=== PATIENT | male | born 1995 | race Caucasian/White ===

== ENCOUNTER 2019-03-19 11:57 | Outpatient (CLI) | payer OTHER ==
--- NOTE | 2019-03-20 00:18 | XRAY Report ---
Reason: PAIN AND SWELLING AFTER FALL 4 DAYS PRIOR Procedure Date: 03/19/2019 Accession Number: [id number] / [id number] Procedure: XR - Knee 4 View RT CPT Code: Final Report FULL RESULT: EXAM: RIGHT KNEE RADIOGRAPHY EXAM DATE: 03/19/2019 12:13 PM. CLINICAL HISTORY: PAIN AND SWELLING AFTER FALL 4 DAYS PRIOR. COMPARISON: None. TECHNIQUE: 4 views. FINDINGS: Bones: No acute fractures or suspicious bone lesions. Joints: Large effusion. No subluxations. Soft Tissues: Unremarkable. IMPRESSION: Large effusion. No acute fracture. RADIA
== END 2019-03-19 11:58 | disposition home or self-care (01) ==
LOC: DI 11:57
PROVIDERS: ATTEND Family Medicine
DX: M25.561 Pain in right knee (principal); M25.461 Effusion, right knee

== ENCOUNTER 2019-04-02 12:11 | Outpatient (CLI) | payer OTHER ==
--- NOTE | 2019-04-03 13:53 | MRI Report ---
Reason: LARGE EFFUSION AND PERSISTENT PAIN RT KNEE Procedure Date: 04/02/2019 Accession Number: [id number] / [id number] Procedure: MRI - Knee RT W/O CPT Code: Final Report FULL RESULT: EXAM: RIGHT KNEE MRI WITHOUT CONTRAST EXAM DATE: 04/02/2019 01:56 PM. CLINICAL HISTORY: LARGE EFFUSION AND PERSISTENT PAIN RT KNEE. COMPARISON: KNEE 4 VIEW RT 03/19/2019 12:13 PM. TECHNIQUE: Multiplanar, multisequence T1-weighted and fluid-sensitive sequences of the knee without contrast. Other: None. FINDINGS: Bones: There is a large solid soft tissue mass anterior to the distal femur measuring at least 10 x 9 x 12 cm. The upper portion of the mass is not completely visualized on the field of view. The mass invades the anterior femur with partial cortical destruction and at least a 5 x 3 cm region of marrow invasion just above the metaphysis. The mass appears to be contiguous with the suprapatellar joint space. There is marrow edema in the distal femur which may either be reactive or additional tumor invasion. . Articular Cartilage: Unremarkable. Medial Meniscus: The medial meniscus is intact. Lateral Meniscus: The lateral meniscus is intact. Cruciate Ligaments: The anterior and posterior cruciate ligaments are intact. Collateral Ligaments: The medial collateral and lateral collateral ligamentous structures are intact. Tendons: The quadriceps, patellar, semimembranosus, and popliteus tendons are unremarkable. Musculature: No edema or fatty atrophy. Soft tissues: There is a 1.3 x 0.8 cm slightly prominent popliteal fossa region lymph node. No other lymphadenopathy is seen. IMPRESSION: 1. Large anterior suprapatellar soft tissue mass invades the anterior femur. This is most consistent with a sarcoma. The differential includes synovial sarcoma, extraosseous Zazueta sarcoma, or periosteal osteosarcoma. Recommend orthopedic oncologic surgical consultation. ARABELLA The call report notification system was initiated by Dr. Juan Mcdaniel at 01:42 PM on 04/03/2019. The above call report findings were discussed with Jung Ayala by Dr. Juan Mcdaniel at 01:52 PM on 04/03/2019.
== END 2019-04-02 12:12 | disposition home or self-care (01) ==
LOC: DI 12:11
PROVIDERS: ATTEND Family Medicine
DX: M25.461 Effusion, right knee (principal); M25.561 Pain in right knee; M25.861 Other specified joint disorders, right knee

== ENCOUNTER 2019-06-18 11:04 | Outpatient (CLI) | payer OTHER | END 2019-06-18 11:05 | disposition critical access hospital (66) | LOC: EMS 11:04 | PROVIDERS: ATTEND Surgery | DX: M25.561 Pain in right knee (principal) | CPT/HCPCS: A0425; A0429 ==